=== PATIENT | female | born 1970 | race Caucasian/White ===

== ENCOUNTER 2025-05-29 14:53 | Inpatient (IN) | payer BC ==
[2025-05-29 15:21] VITALS: BMI 22.8
[2025-05-29] MEDS ORDERED: NICOTINE POLACRILEX 2 MG LOZENGE BC PRN (15:39)
[2025-05-29] MEDS ORDERED: IBUPROFEN 400 MG TABLET (FP) PO PRN (15:39)
[2025-05-29] MEDS ORDERED: METHOCARBAMOL 500 MG TABLET PO PRN (15:39)
[2025-05-29] MEDS ORDERED: LOPERAMIDE HCL 2 MG CAPSULE PO PRN (15:39)
[2025-05-29] MEDS ORDERED: ONDANSETRON *ODT* 4 MG TABLET SL PRN (15:39)
[2025-05-29] MEDS ORDERED: hydrOXYzine PAMOATE 25 MG CAPSULE (FP) PO PRN (15:39)
[2025-05-29] MEDS ORDERED: ACETAMINOPHEN 325 MG TABLET (FP) PO PRN (15:39)
[2025-05-29] MEDS ORDERED: NICOTINE POLACRILEX 2 MG GUM BUC PRN (15:39)
[2025-05-29] MEDS ORDERED: DICYCLOMINE HCL 10 MG CAPSULE PO PRN (15:39)
[2025-05-29] MEDS ORDERED: BISMUTH SUBSALICYLATE 524 MG/30 ML PO PRN (15:39)
[2025-05-29] MEDS ORDERED: POLYETHYLENE GLYCOL (HEALTHYLAX) 3350 17 GM PACKET PO PRN (15:39)
[2025-05-29] MEDS ORDERED: NALOXONE (NARCAN) HCL 4 MG/0.1 ML SPRAY NS PRN (15:39)
[2025-05-29] MEDS ORDERED: MAGNESIUM HYDROX 2400MG/30ML ORAL SUSPENSION 30 ML CUP PO PRN (15:39)
[2025-05-29] MEDS ORDERED: LORazepam 2 MG/ML SDV VIAL ONE (15:50)
[2025-05-29] MEDS: TRIMETHOBENZAMIDE HCL 200MG/2ML INJ IM ONE (16:01)
[2025-05-29] MEDS: LORazepam 2 MG/ML SDV VIAL IM ONE (16:01)
[2025-05-29] MEDS: THIAMINE 100 MG TABLET PO SCH (22:12)
[2025-05-29] MEDS: IBUPROFEN 600 MG TABLET (FP) PO PRN (22:12)
[2025-05-29] MEDS: MELATONIN 5 MG TABLETS PO SCH (22:12)
[2025-05-30] MEDS: PRENATAL VITAMINS W/ FOLIC ACID TABLET (FP) PO SCH (10:21)
[2025-05-30 10:59] LABS: MCHC 34.7 g/dl (32.2-35.5); MEAN CELL VOLUME 91.7 fl (79.4-94.8); MEAN PLT VOLUME 9.3 fl (9.4-12.3); RDW 13.0 % (12.3-16.6)
[2025-05-30 13:35] LABS: ALK PHOS 123 U/L (45-117); CO2 30 mmol/L (21-32); CREATININE 1.0 mg/dL (0.55-1.3); GLUCOSE,RANDOM 140 mg/dL (74-106); SGOT/AST 174 U/L (15-37); SGPT/ALT 140 U/L (13-61); TOT PROT 6.0 g/dl (6.4-8.2)
[2025-05-30] MEDS: POTASSIUM CHLORIDE ORAL LIQUID 20 MEQ/15 ML PO ONE ×2 (14:31→17:21)
[2025-05-30] MEDS: MAG HYDROX/AL HYDROX/SIMETH 30 ML UNIT-DOSE CUP PO PRN (14:34)
[2025-05-30] MEDS: BENZOCAINE/MENTHOL (CHLORASEPTIC ) LOZENGE MM PRN (17:43)
[2025-05-30] MEDS: guaiFENesin 600 MG TABLET.ER (FP) PO PRN (22:19)
[2025-05-31] MEDS: FLUTICASONE PROP 0.05% 16 GM NASAL SPRAY NS SCH (10:25)
[2025-05-31] MEDS: LORATADINE 10 MG TABLET PO SCH (10:27)
[2025-05-31] MEDS: NALTREXONE HCL 50 MG TABLET PO ONE (10:27)
[2025-05-31 12:29] LABS: CO2 34.0 mmol/L (21-32); GLUCOSE,RANDOM 129.0 mg/dL (74-106)
[2025-05-31 12:34] LABS: CREATININE 0.7 mg/dL (0.55-1.3)
[2025-05-31] MEDS: BENZONATATE 200 MG CAPSULE PO PRN (17:40)
[2025-06-01] MEDS: NALTREXONE HCL 50 MG TABLET PO SCH (10:23)
[2025-06-02 06:55] VITALS: BP 122/80; PULSE 77; RESP 17; TEMP 96.4
== END 2025-06-02 09:32 | disposition home or self-care (01) | DRG 775 ==
LOC: YASAS 14:53 → Y3N 17:37
PROVIDERS: ADMIT Neuromusculoskeletal Medicine & OMM; ATTEND Allergy & Immunology
PROC: HZ2ZZZZ Detoxification Services for Substance Abuse Treatment (ICD-10-PCS; principal; 2025-05-29)
DX: F10.230 Alcohol dependence with withdrawal, uncomplicated (principal); F17.210 Nicotine dependence, cigarettes, uncomplicated; F41.9 Anxiety disorder, unspecified; E87.6 Hypokalemia; E78.5 Hyperlipidemia, unspecified; I10 Essential (primary) hypertension
CPT/HCPCS: 36415; 80048; 80053; 80305; 80307; 85027; 86780; 87637-QW; 93005; 93010